=== PATIENT | female | born 1965 | race Caucasian/White ===

== ENCOUNTER → 2017-06-15 14:19 | Outpatient (CLI) | payer BC, MEDICARE, SELFPAY ==
--- NOTE | 2017-06-15 14:25 | US_ITS ---
US breast RT complete COMPARISON: Ultrasound right breast 11/05/2016 HISTORY: Possible asymmetric density on mammogram and follow-up benign-appearing hypoechoic lesion on ultrasound TECHNIQUE: Targeted ultrasound right breast FINDINGS: Again noted is a small oval hypoechoic lesion 10:00 position near the nipple measuring 1 cm in length stable basely unchanged in size and overall appearance from the previous ultrasound study. The surrounding breast parenchyma shows heterogenic echogenicity. There is a normal-appearing node in the axilla. IMPRESSION: Stable benign-appearing hypoechoic lesion likely asymmetric glandular tissue or possibly small fibroadenoma and I feel no additional evaluation is indicated this time.
--- NOTE | 2017-06-15 14:25 | MM_ITS ---
MM Dig mamm DX unilat RT CAD COMPARISON: Additional views right breast 11/05/2016 and ultrasound right breast same date INDICATION: Short term follow-up of possible asymmetric density right breast and possible hypoechoic lesion on ultrasound TECHNIQUE: Standard MLO and CC views were obtained along with spot compression MLO and CC views and rolled CC views. FINDINGS: Scattered fibroglandular densities are seen as noted previously. Spot compression views show a stable area of slightly asymmetric glandular density with no suspicious characteristics. Ultrasound performed the same date showed a stable oval hypoechoic lesion possibly asymmetric glandular tissue versus a small fibroadenoma. IMPRESSION: No persistent or suspicious lesion seen on mammogram with stable benign-appearing hypoechoic lesion on ultrasound, recommend the patient return to normal yearly screening mammography in the September or October of this year. BI-RADS Category: 1 Negative RECOMMENDED FOLLOW-UP: 6M - 6 MONTH FOLLOW-UP to return to normal yearly screening schedule (A letter has been sent to the patient regarding results of the study.)
== END ==
PROVIDERS: PCP Obstetrics & Gynecology; Visit Provider Obstetrics & Gynecology
DX: R92.8 Other abnormal and inconclusive findings on diagnostic imaging of breast (principal)
CPT/HCPCS: 76641; 77065

== ENCOUNTER → 2018-11-13 08:07 | Outpatient (CLI) | payer MEDICARE, SELFPAY ==
--- NOTE | 2018-11-13 08:08 | MM_ITS ---
PROCEDURE: MM DIG SCREENING MAMM BI W/CAD Patient Age:53Y CLINICAL INDICATION: 53-year-old. No hormones but no new complaints. Previous stereotactic biopsy percutaneous biopsy right and left breast. Family history. 4 maternal aunts with breast cancer COMPARISON: [facility] DIG MAMM-SCREEN SUSAN from 10/17/2012 DMDXUAVL DIG MAMM-DX UNI ADD VIEWS-LT from 04/18/2013 [facility] DIG MAMM-SCREEN SUSAN from 05/17/2014 [facility] DIG MAMM-SCREEN SUSAN from 09/30/2015 [facility] DIG MAMM-SCREEN SUSAN W/CAD from 10/21/2016 DMDXUWAR DIG MAMM-DX UNI RT W/AV W/CAD from 11/05/2016 DXRT MM Dig mamm DX unilat RT CAD from 06/15/2017 TECHNIQUE: Standard CC and MLO images were obtained. R2 CAD reviewed. additional axillary CC view bilateral. Additional nipple profile views both breast FINDINGS: Moderate density breast with no significant new areas of concern but no dominant mass nor suspicious appearing calcifications. There are some scattered small benign-appearing calcifications bilaterally similar to previous studies Mild asymmetry areas of minimal focal density bilaterally unchanged.. Right breast appear stable but no new areas of concern follow-up in 1 year Left breast. No new areas of significant concern. IMPRESSION: At moderate breast density. No new areas of significant concern . Stable mammogram. Follow-up 1 year recommended bilateral BI-RAD Category: 2 Benign Finding(s) FOLLOW-UP: 1YR 1 Year Follow-up (A letter has been sent to the patient regarding results of the study.) Dictated by: Lloyd Rankin MD 11/14/2018 23:28 Electronically signed by Lloyd Rankin MD in [place] 11/14/2018 23:28
== END ==
PROVIDERS: Visit Provider Obstetrics & Gynecology
DX: Z12.31 Encounter for screening mammogram for malignant neoplasm of breast (principal); Z80.3 Family history of malignant neoplasm of breast
CPT/HCPCS: 77067